=== PATIENT | female | born 1945 | race Caucasian/White ===

== ENCOUNTER 2020-04-12 14:21 | Outpatient (CLI) | payer OTHER, SELFPAY ==
--- NOTE | ~2020-04-12 | XR_ITS ---
EXAMINATION: XR knee LT 3V DATE: 04/12/2020 15:06 INDICATION: Psoriatic arthropathy. TECHNIQUE: 3 views of left knee were obtained. COMPARISON: None. FINDINGS: There is lateral subluxation of patella. No fracture. There is mild osteoarthritis of media l and lateral compartments and severe osteoarthritis of patellofemoral compartment. No knee joint eff usion. IMPRESSION: 1. Severe left knee osteoarthritis. Reviewed, dictated and finalized at location A. DENT ENGINEER
--- NOTE | ~2020-04-12 | XR_ITS ---
EXAMINATION: HAND-RIVER ARTHRITIS 3+VIEWS DATE: 04/12/2020 15:06 INDICATION: Arthropathic psoriasis TECHNIQUE: Posteroanterior, lateral, and oblique views of the left and of the right hands as well as a ballcatchers view of both hands were obtained. COMPARISON: None. FINDINGS: No fracture. There is mild ulnar angulation at the bilateral third distal interphalangeal joints resu lting from asymmetric ulnar side predominant central erosions with going configuration at the base of the distal phalanges and marginal hypertrophic osteophytes consistent with severe erosive osteoarthr itis. Alignment is otherwise normal. Additional moderate to severe erosive osteoarthritis at the tristan ining distal interphalangeal joints in both hands. Mild osteoarthritis with erosive components at the remaining interphalangeal joints as well as at the right triscaphe and bilateral first carpal metaca rpal joints. There is cystic change at the radial aspect of the left lunate. No other erosions identi fied. IMPRESSION: 1. 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 The location and configuration of the erosions which appear confined to the bases of the distal ph alanges favors the former. Reviewed, dictated and finalized at location A. CTION MACHINE SETTER IMPRESSION: 1. 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 The location and configuration o f the erosions which appear confined to the bases of the distal phalanges favor s the former.
--- NOTE | ~2020-04-12 | XR_ITS ---
EXAMINATION: XR lumbar spine min 4V DATE: 04/12/2020 15:06 INDICATION: Psoriatic arthropathy. TECHNIQUE: 5 views of lumbar spine were obtained. COMPARISON: None. FINDINGS: There is 3 mm anterolisthesis of L3 on L4 and 5 mm anterolisthesis of L4 on L5. Vertebral b loi heights are normal. There is mildly decreased disc height at L3-L4 and moderately decreased disc height at L4-L5. There is multilevel facet joint osteoarthritis, severe bilaterally from L3-L4 throug h L5-S1. IMPRESSION: 1. Moderate lumbar spondylosis. Reviewed, dictated and finalized at location A. TUBING BACKER
--- NOTE | ~2020-04-12 | XR_ITS ---
EXAMINATION: XR sacroiliac joints min 3V DATE: 04/12/2020 15:06 INDICATION: Arthropathic psoriasis TECHNIQUE: AP and left and right oblique views of the sacroiliac joints were obtained. COMPARISON: None. FINDINGS: Alignment is normal. No fracture. Sacral iliac joint spaces are relatively preserved. No erosions or subarticular sclerosis to suggest an inflammatory arthritis. Bilateral hip joint spaces also appear n ormal. Severe bilateral mid to lower lumbar facet osteoarthritis. IMPRESSION: 1. Normal bilateral sacroiliac joints. Reviewed, dictated and finalized at location A. [employer]
--- NOTE | ~2020-04-12 | XR_ITS ---
EXAMINATION: XR knee RT 3V DATE: 04/12/2020 15:06 INDICATION: Psoriatic arthropathy. TECHNIQUE: 3 views of right knee were obtained. COMPARISON: None. FINDINGS: There is lateral subluxation of patella. No fracture. There is severe osteoarthritis of pat ellofemoral compartment and mild osteoarthritis of medial and lateral compartments. There is a 2.7 cm loose body in the lateral patellofemoral joint recess. No knee joint effusion. IMPRESSION: 1. Severe right knee osteoarthritis. 2. Right knee joint loose body. Reviewed, dictated and finalized at location A. K AND LOAD OPERATOR
== END 2020-04-12 14:22 | disposition home or self-care (01) ==
LOC: ANHIMG 14:27
PROVIDERS: Visit Provider Internal Medicine
DX: L40.50 Arthropathic psoriasis, unspecified (principal); Z11.59 Encounter for screening for other viral diseases; M19.042 Primary osteoarthritis, left hand; M19.041 Primary osteoarthritis, right hand; M47.816 Spondylosis without myelopathy or radiculopathy, lumbar region; M17.0 Bilateral primary osteoarthritis of knee; M23.41 Loose body in knee, right knee
CPT/HCPCS: 72110; 72202; 73130; 73562